=== PATIENT | male | born 1965 | race Two or more races ===

== ENCOUNTER 2024-01-16 07:58 | Day surgery (SDC) | payer MEDICAID ==
[2024-01-14 09:05] LABS: Urine Bacteria None Seen /hpf (None Seen); Urine WBC None Seen /hpf (0 - 3)
[2024-01-14 09:29] LABS: Basophils # (auto) 0 10 ^3/uL (0-0.2); Basophils % (auto) 0.4 % (0.0-2.0); Eosinophils # (auto) 0.1 10 ^3/uL (0-0.8); Eosinophils % (auto) 1.2 % (0.0-7.0); Hematocrit 44.7 % (41.0-53.0); Hemoglobin 15.8 g/dL (13.5-17.5); Lymphocytes # (auto) 1.6 10 ^3/uL (0.4-5.4); Lymphocytes % (auto) 19.8 % (10.0-50.0); Mean Corpuscular Hgb Conc. 35.4 g/dL (32.0-36.0); Mean Corpuscular Volume 90.2 fL (80.0-100.0); Monocytes # (auto) 0.7 10 ^3/uL (0-1.3); Monocytes % (auto) 8.4 % (0.0-12.0); Neutrophils # (auto) 5.6 10 ^3/uL (1.6-8.6); Neutrophils % (auto) 70.2 % (37.0-80.0); Red Blood Cells 4.95 10^6/uL (4.5-5.90); Red Cell Distribution Width 13.4 % (11.8-14.3)
[2024-01-14 09:34] LABS: Urine Blood Negative /uL (Negative); Urine Clarity Clear (Clear); Urine Color Colorless (Yellow); Urine Protein, UAD Negative (Negative); Urine Specific Gravity 1.008 (1.001-1.035); Urine Urobilinogen Normal (Negative)
[2024-01-14 09:36] LABS: INR 1.02 (0.9-1.15); Partial Thromboplastin Time 25.3 SEC (24.5-34.5); Prothrombin Time 10.8 sec (9.3-11.8)
[2024-01-14 10:01] LABS: Alanine Aminotransferase 34 U/L (7-40); Albumin 4.5 g/dL (3.2-4.8); Alkaline Phosphatase 71 U/L (46-116); Anion Gap 6 (5-15); Aspartate Aminotransferase 13 U/L (13-40); BUN/Creatinine Ratio 14.6 (10.0-20.0); Blood Urea Nitrogen 14 mg/dL (9-23); Calcium 9.6 mg/dL (8.7-10.4); Carbon Dioxide 26 mmol/L (20-30); Chloride 107 mmol/L (98-107); Glucose 114 mg/dL (74-106); Potassium 4.8 mmol/L (3.5-5.1); Sodium 139 mmol/L (136-145)
[2024-01-14 10:02] LABS: Bilirubin, Total 0.6 mg/dL (0.2-1.0)
[2024-01-14 10:03] LABS: Total Protein 6.6 g/dL (5.7-8.2)
[~2024-01-16] VITALS: Ht 175.3 cm; Wt 95.3 kg
[~2024-01-16 07:58] MED LIST: AMLO1TAB23 PO; ATOR20TA PO; BACL20TA PO; GABA-1250 PO; HYDR-4798 PO; LOSA-534 PO; METO25TA5 PO; NALO1TAB PO
[2024-01-16] MEDS ORDERED: KETAMINE 50mg/ML 1ml syringe IV ONE (07:59)
[2024-01-16] MEDS ORDERED: ceFAZolin 2 GM/D5W50ml 50 ML IV ONE (08:47)
[2024-01-16] MEDS ORDERED: MIDAZOLAM HCL 2MG/2ML 2ml VIAL (1mg/ml) ONE (09:08)
[2024-01-16] MEDS ORDERED: fentaNYL CITRATE 100 MCG/2 ML VL ONE (09:08)
[2024-01-16] MEDS ORDERED: GLYCOPYRROLATE 0.2 MG/ML 1ML VIAL ONE (09:09)
[2024-01-16] MEDS ORDERED: LIDOCAINE 2% (LOCAL ANESTH.) PF 5ml SDV ONE (09:09)
[2024-01-16] MEDS ORDERED: PROPOFOL 10 MG/ML 20 ML IV ONE (09:09)
[2024-01-16] MEDS ORDERED: ONDANSETRON HCL 4 MG/2 ML VIAL ONE (09:09)
[2024-01-16] MEDS ORDERED: ePHEDrine SULFATE 50 MG/ML AMP ONE (09:09)
[2024-01-16] MEDS ORDERED: ROCURONIUM 10MG/ML 10ML VIAL IV ONE (09:09)
[2024-01-16] MEDS ORDERED: KETOROLAC TROMETH 30 MG/ML 1ML VIAL ONE (09:09)
[2024-01-16] MEDS ORDERED: DexAMETHasone SOD PHOS 10MG/1ML VIAL INJ ONE (09:09)
[2024-01-16] MEDS ORDERED: LIDOCAINE 2% JELLY 11ml (GLYDO) ONE (09:25)
[2024-01-16] MEDS ORDERED: GELATIN 1 SPONGE SIZE 100 TOP ONE (09:25)
[2024-01-16] MEDS ORDERED: HYDROCORTISONE SOD SUCC 100 MG/2ML INJ VIAL ONE (09:58)
[2024-01-16] MEDS ORDERED: HYDROmorphone HCL 2 MG/ML VL/or syr ONE (09:58)
[2024-01-16 11:15] VITALS: PULSE 86; RESP 13; TEMP 97.8; O2SAT 92
[2024-01-16] MEDS ORDERED: ONDANSETRON HCL 4 MG/2 ML VIAL IV ONE (11:30)
[2024-01-16] MEDS ORDERED: HYDROmorphone HCL 2 MG/ML VL/or syr IV PRN (11:30)
[2024-01-16 12:00] VITALS: BP 141/86; PULSE 73; RESP 16; O2SAT 96
== END 2024-01-16 12:30 | disposition home or self-care (01) ==
LOC: SUR 07:58
PROVIDERS: ATTEND Surgery
DX: K64.4 Residual hemorrhoidal skin tags (principal); K64.8 Other hemorrhoids; K62.5 Hemorrhage of anus and rectum; G89.29 Other chronic pain; I10 Essential (primary) hypertension; E78.5 Hyperlipidemia, unspecified; Z86.16 Personal history of COVID-19; Z98.890 Other specified postprocedural states; Z80.9 Family history of malignant neoplasm, unspecified; Z83.1 Family history of other infectious and parasitic diseases
CPT/HCPCS: 36415; 46255; 80053; 81001; 85025; 85610; 85730; 86850; 86900; 86901; 88304; J0690; J1100; J1170; J1720; J1885; J2001; J2250; J2405; J2704; J3010